=== PATIENT | male | born 1980 | race Caucasian/White ===

== ENCOUNTER 2016-04-22 05:28 | Emergency (ER) | payer BC, OTHER ==
--- NOTE | 2016-04-22 05:35 | PDOC ---
Medical Decision Making - Medical Decision Making 04/22/16 05:35 agree with care from CATALINA Lara *DC/Admit/Observation/Transfer Diagnosis at time of Disposition: Conjunctivitis - Discharge Dispostion Disposition: HOME Condition at time of disposition: Stable - Prescriptions Prescriptions: Erythromycin 0.5% Eye Ointment [Erythromycin 0.5% Eye Ointment -] 1 applic OS BID #1 tube - Referrals Referrals: Gage Shah MD [Staff Physician] - - Patient Instructions Printed Discharge Instructions: DI for Conjunctivitis Additional Instructions: Avoid rubbing your eyes Follow up with the grain operator in 24-48 hours Take antibiotic ointment Return to the ER for blurry vision
--- NOTE | 2016-04-22 05:38 | PDOC ---
History of Present Illness - General Stated Complaint: EYE PROBLEM Time Seen by Provider: 04/22/16 05:34 History Source: Patient Exam Limitations: No Limitations - History of Present Illness Timing/Duration: 4-6 hours Severity: mild Past History - Travel Traveled outside of the country in the last 30 days: No Close contact w/someone who was outside of country & ill: No - Past Medical History Home Medications: Ambulatory Orders Erythromycin 0.5% Eye Ointment [Erythromycin 0.5% Eye Ointment -] 1 applic OS BID #1 tube 04/22/16 Review of Systems - Review of Systems HEENTM: No: Eye Pain, Blurred Vision, Tearing, Recent change in vision, Double Vision, Cataracts *Physical Exam - Physical Exam HEENT: positive: EOMI, LAI, Normal ENT Inspection, Other (injected left conjunctiva) *DC/Admit/Observation/Transfer Diagnosis at time of Disposition: Conjunctivitis Qualifiers: Conjunctivitis type: acute Acute conjunctivitis type: viral Laterality: left Qualified Code(s): B30.9 - Viral conjunctivitis, unspecified - Discharge Dispostion Disposition: HOME Condition at time of disposition: Stable - Prescriptions Prescriptions: Erythromycin 0.5% Eye Ointment [Erythromycin 0.5% Eye Ointment -] 1 applic OS BID #1 tube - Referrals Referrals: Gage Shah MD [Staff Physician] - - Patient Instructions Printed Discharge Instructions: DI for Conjunctivitis Additional Instructions: Avoid rubbing your eyes Follow up with the frame trimmer in 24-48 hours Take antibiotic ointment Return to the ER for blurry vision Progress Note - Progress Note Progress Note: 35-year-old male presents to the emergency department complaining of injected left conjunctiva since early this morning. Patient states he noticed that he had pinkeye this afternoon but thought it would go away. He denies any blurry vision, eye pain or visual disturbance. Patient denies any other complaints. Uncorrected OS: 20/20 OD 20/20 OU 20/20
[2016-04-22 05:44] VITALS: BP 148/88; PULSE 72; TEMP 98.1; BMI 34.9
== END 2016-04-22 05:48 | disposition home or self-care (01) ==
LOC: JER 05:28
DX: B30.9 Viral conjunctivitis, unspecified (principal)
CPT/HCPCS: 99282-25